=== PATIENT | male | born 1955 | race Caucasian/White ===

== ENCOUNTER 2016-07-10 15:34 | Emergency (ER) | payer OTHER ==
[~2016-07-10] VITALS: Ht 172.7 cm; Wt 87.7 kg
[2016-07-10 15:36] VITALS: Ht 172.7 cm; Wt 87.7 kg
[2016-07-10] MEDS ORDERED: ASPIRIN 81 MG CHEW PO STA (15:43)
[2016-07-10] MEDS ORDERED: ONDANSETRON 4MG OD TAB PO ONE (15:45)
--- NOTE | 2016-07-10 15:47 | EMERGENCY ROOM VISIT NOTE ---
History Report prepared by Aurelio: Bennett Gayle Under the Supervision of: Dr. Blayne Thurston D.O. First contact with patient: 15:40 Chief Complaint: CHEST PAIN Stated Complaint: SWEATY,ANXIOUS,CLAMY,DIZZY,A-FIB PT History of Present Illness The patient is a 61 year old male who presents to the Emergency Room with complaints of possible cardiac event. The patient states that he has a history of atrial fibrillation. He's been noticing over the last few weeks that he's been having exertional symptoms which he thinks could either be related to anxiety or possibly a cardiac event. He has a history of atrial fibrillation. He states he has been compliant with his medications. He is currently in [place] helping his daughter go home for the holiday. He is from the [facility]. He states that he was helping move a very large couch. He became very diaphoretic and became very anxious. He states he does not remember having any specific chest pain but felt as though he may have had some pressure or possibly discomfort across his anterior chest. His states it he was very pale and appeared uncomfortable but he did not appear diaphoretic at the time that she was watching him. The patient states he was diaphoretic at one point and became very anxious. He called his primary care physician and was told to go to the emergency department for an evaluation. At this time the patient denies having any chest pain or shortness of breath although he does state that recently he was cleared to return to exercise and has been noticing exertional symptoms such as dyspnea. The patient denies having any swelling in his legs recently came. He denies having any recent chills fevers or febrile illnesses. The patient denies having any cough. Source of History: patient Onset: the past few weeks Position: chest Symptom Intensity: mild Quality: pressure Timing: intermittent Modifying Factors (Worsening): exertion Associated Symptoms: No SOB, No chest pain, No chills, No cough, No fevers Review of Systems See HPI for pertinent positives & negatives. A total of 10 systems reviewed and were otherwise negative. Past Medical & Surgical Medical Problems: (1) Anxiety (2) Atrial fibrillation (3) High cholesterol (4) History of cardioversion (5) Hypertension Family History Omitted secondary to age. Social History Smoking Status: Never Smoker Smokeless Tobacco Use: No Alcohol Use: none Drug Use: none Marital Status: Current/Historical Medications Scheduled Aspirin (Aspirin Adult Low Strengt), 1 TAB PO QAM Atorvastatin (Lipitor), 20 MG PO DAILY Lisinopril (Prinivil), 5 MG PO QAM Lorazepam (Ativan), 0 PO Q6H Metoprolol Tartrate (Lopressor) (Lopressor), 25 MG PO BID Rivaroxaban (Xarelto), 20 MG PO DAILY Allergies Coded Allergies: No Known Allergies (Unverified , 07/10/16) Physical Exam Vital Signs Date Time Temp Pulse Resp B/P Pulse Ox O2 Delivery O2 Flow Rate FiO2 07/10/16 17:09 36.3 74 12 161/99 100 07/10/16 16:34 74 12 100 07/10/16 16:30 136/92 07/10/16 16:28 127/86 07/10/16 16:24 99 Room Air 07/10/16 16:24 99 Room Air 07/10/16 16:04 82 16 97 07/10/16 15:49 75 07/10/16 15:44 138/96 07/10/16 15:36 36.3 64 20 149/81 99 Room Air Physical Exam GENERAL: Patient is awake alert in no acute distress patient is resting comfortably and showing no signs of anxiety EYES: The conjunctivae are clear. The pupils are round and reactive. EARS, NOSE, MOUTH AND THROAT: The nose is without any evidence of any deformity. Mucous membranes are moist tongue is midline NECK: The neck is nontender and supple. RESPIRATORY: Normal respiratory effort is noted there is no evidence of wheezing rhonchi or rales CARDIOVASCULAR: Regular rate and rhythm noted there no murmurs rubs or gallops normal S1 normal S2 GASTROINTESTINAL: The abdomen is soft. Bowel sounds are present in all quadrants. Abdomen is nontender MUSCULOSKELETAL/EXTREMITIES: There is no evidence of gross deformity full range of motion is noted in the hips and shoulders SKIN: There is no obvious evidence of any rash. There are no petechiae, pallor or cyanosis noted. NEUROLOGIC: Patient is awake alert and oriented x3. Medical Decision & Procedures ER Provider Diagnostic Interpretation: X-ray results as stated below per interpretation by me and the radiologist. CHEST ONE VIEW PORTABLE CLINICAL HISTORY: Chest pain. COMPARISON STUDY: No previous studies for comparison. FINDINGS: There is no pneumothorax or pleural effusion. There is no consolidation. Mild to moderate cardiomegaly is noted. There is no evidence of pulmonary edema. IMPRESSION: 1. No acute cardiopulmonary findings. 2. Mild to moderate cardiomegaly. No evidence of pulmonary edema. Electronically signed by: Calvin Tran M.D. 07/10/2016 4:23 PM Dictated Date/Time: 07/10/2016 4:22 PM Laboratory Results 07/10/16 15:55 Red Blood Count 4.42, Mean Corpuscular Volume 89.1, Mean Corpuscular Hemoglobin 31.4, Mean Corpuscular Hemoglobin Concent 35.3, Mean Platelet Volume 9.7, Neutrophils (%) (Auto) 56.5, Lymphocytes (%) (Auto) 28.8, Monocytes (%) (Auto) 8.1, Eosinophils (%) (Auto) 5.6, Basophils (%) (Auto) 0.8, Neutrophils # (Auto) 2.73, Lymphocytes # (Auto) 1.39, Monocytes # (Auto) 0.39, Eosinophils # (Auto) 0.27, Basophils # (Auto) 0.04 07/10/16 15:55 Test 07/10/16 15:55 White Blood Count 4.83 K/uL (4.8-10.8) Red Blood Count 4.42 M/uL (4.7-6.1) Hemoglobin 13.9 g/dL (14.0-18.0) Hematocrit 39.4 % (42-52) Mean Corpuscular Volume 89.1 fL (80-100) Mean Corpuscular Hemoglobin 31.4 pg (25-34) Mean Corpuscular Hemoglobin Concent 35.3 g/dl (32-36) Platelet Count 199 K/uL (130-400) Mean Platelet Volume 9.7 fL (7.4-10.4) Neutrophils (%) (Auto) 56.5 % Lymphocytes (%) (Auto) 28.8 % Monocytes (%) (Auto) 8.1 % Eosinophils (%) (Auto) 5.6 % Basophils (%) (Auto) 0.8 % Neutrophils # (Auto) 2.73 K/uL (1.4-6.5) Lymphocytes # (Auto) 1.39 K/uL (1.2-3.4) Monocytes # (Auto) 0.39 K/uL (0.11-0.59) Eosinophils # (Auto) 0.27 K/uL (0-0.5) Basophils # (Auto) 0.04 K/uL (0-0.2) RDW Standard Deviation 40.7 fL (36.4-46.3) RDW Coefficient of Variation 12.5 % (11.5-14.5) Immature Granulocyte % (Auto) 0.2 % Immature Granulocyte # (Auto) 0.01 K/uL (0.00-0.02) Prothrombin Time 10.8 SECONDS (9.0-12.0) Prothromb Time International Ratio 1.0 (0.9-1.1) Activated Partial Thromboplast Time 29.1 SECONDS (21.0-31.0) Partial Thromboplastin Ratio 1.1 Anion Gap 6.0 mmol/L (3-11) Est Creatinine Clear Calc Drug Dose 77.8 ml/min Estimated GFR () 84.7 Estimated GFR (Non- 73.1 BUN/Creatinine Ratio 18.1 (10-20) Calcium Level 8.8 mg/dl (8.5-10.1) Total Bilirubin 0.6 mg/dl (0.2-1) Direct Bilirubin 0.2 mg/dl (0-0.2) Aspartate Amino Transf (AST/SGOT) 18 U/L (15-37) Alanine Aminotransferase (ALT/SGPT) 44 U/L (12-78) Alkaline Phosphatase 67 U/L (45-117) Total Creatine Kinase 48 U/L (39-308) Creatine Kinase MB 1.3 ng/ml (0.5-3.6) Creatine Kinase MB Ratio 2.7 (0-3.0) Troponin I < 0.015 ng/ml (0-0.045) Total Protein 7.6 gm/dl (6.4-8.2) Albumin 4.0 gm/dl (3.4-5.0) Lipase 128 U/L (73-393) Laboratory results per my review. Medications Administered Medications (Trade) Dose Ordered Sig/Rossana Route Start Time Stop Time Status Last Admin Dose Admin Ondansetron HCl (Zofran Odt) 4 mg ONE ONCE PO 07/10/16 15:45 07/10/16 15:46 DC 07/10/16 16:23 4 MG Aspirin (Aspirin Chew) 324 mg NOW STAT PO 07/10/16 15:43 07/10/16 15:45 DC 07/10/16 16:23 324 MG Lorazepam (Ativan Tab) 0.5 mg NOW STAT SL 07/10/16 17:04 07/10/16 17:05 DC 07/10/16 17:15 0.5 MG ECG Indication: chest pain Rate (beats per minute): 65 Rhythm: normal sinus Findings: nonspecific-ST abn (Inferior), PVC Comparison ECG Date: no prior available Change: A second EKG was obtained in the emergency department. This reveals normal sinus rhythm at 72 beats per minute. No ectopy was noted. Inferior T wave inversions were noted. Resolution of previously noted PVCs otherwise no change from earlier tracing. ED Course 1540: The patient was evaluated in room B3B. A complete history and physical examination were performed. 1543: Ordered Aspirin 324 mg PO 1545: Ordered Zofran Odt 4 mg PO 1700: I spoke with Dr. Ariza of cardiology at this time. Please see the consultation note. 1704: Ordered Ativan Tab 0.5 SL 1735: Upon reevaluation, the patient is resting. I discussed the results and treatment plan with him. He verbalized agreement of the treatment plan. He was discharged home. Medical Decision Prior records/ancillary studies reviewed. Triage Nursing notes reviewed. The patient's history was concerning for chest pain. Differential diagnosis: Etiologies such as cardiac ischemia, aortic dissection, pulmonary embolism, pneumonia, pneumothorax, musculoskeletal, infections, pericarditis, myocarditis , esophageal rupture, gastrointestinal, as well as others were entertained. The patient is a 61-year-old male who presented to the emergency department for an evaluation of discomfort in his chest and diaphoresis. The patient was concerned he may have had a cardiac event. He was doing exertional activity when the symptoms started. He doesn't a history of paroxysmal atrial fibrillation and takes blood thinners as well as beta blockers. At this time he is in normal sinus rhythm. His cardiac biomarkers were negative. I discussed the patient's laboratory and radiographic studies with him. He was treated with aspirin and Zofran and Ativan in the emergency department. I discussed his case with his primary sign language instructor. She states that the patient has had a cardiac catheterization in the past which did reveal no acute coronary artery disease or stenosis. The patient was encouraged to restart his flecainide. This was at the recommendation of his primary sign language instructor. He was also encouraged to continue all medications as prescribed and can continue to rest and avoid any strenuous activity. He was also encouraged to rest and follow-up with his primary care physician as well. He was also encouraged to return the emergency Department immediately if symptoms change worsen or the need arises. Consults Time Called: 1655 Consulting Physician: Dr. Ariza - Cardiology Returned Call: 1700 We discussed the patient's case. They told me that the patient has received a cardiac catheterization before that was normal. Impression Primary Impression: Substernal chest pain Additional Impression: Palpitations Scribe Attestation The scribe's documentation has been prepared under my direction and personally reviewed by me in its entirety. I confirm that the note above accurately reflects all work, treatment, procedures, and medical decision making performed by me. Departure Information Dispostion Home / Self-Care Referrals No Doctor, Assigned (PCP) Forms HOME CARE DOCUMENTATION FORM, IMPORTANT VISIT INFORMATION Patient Instructions ED Chest Pain Atypical Unkn Cause, My [facility] Additional Instructions Continue all medications as prescribed. Rest and avoid any strenuous activity. Call your primary care physician as well as her primary sign language instructor to schedule a follow-up appointment. Your sign language instructor recommended restarting your T[place]oc[place]. Return to the emergency department immediately if symptoms change worsen or the need arises. Problem Qualifiers
[2016-07-10] MEDS ORDERED: LORA-741 PO (15:58)
[2016-07-10] MEDS ORDERED: RIVA1TAB4 PO (15:58)
[2016-07-10] MEDS ORDERED: METO25TA56 PO (15:58)
[2016-07-10] MEDS ORDERED: ATOR-22 PO (15:58)
[2016-07-10] MEDS ORDERED: ASPI-495 PO (15:58)
[2016-07-10] MEDS ORDERED: LISI-729 PO (15:58)
[2016-07-10 16:12] LABS: BASO % 0.8 %; BASO ABS # 0.04 K/uL (0-0.2); COMPLETE YES; EOS % 5.6 %; HEMATOCRIT 39.4 % (42-52); IG% 0.2 %; LYMPH % 28.8 %; LYMPH ABS # 1.39 K/uL (1.2-3.4); MEAN CELL VOLUME 89.1 fL (80-100); MEAN CORPUSCULAR HEMOGLOBIN 31.4 pg (25-34); MEAN CORPUSCULAR HGB CONC 35.3 g/dl (32-36); MEAN PLATELET VOLUME 9.7 fL (7.4-10.4); MONO % 8.1 %; NEUT % 56.5 %; PLATELET COUNT 199 K/uL (130-400); RED BLOOD COUNT 4.42 M/uL (4.7-6.1); WHITE BLOOD COUNT 4.83 K/uL (4.8-10.8)
[2016-07-10 16:22] LABS: PARTIAL THROMBOPLASTIN RATIO 1.1; PROTHROMBIN TIME (PATIENT) 10.8 SECONDS (9.0-12.0)
[2016-07-10 16:24] VITALS: O2SAT 99
--- NOTE | 2016-07-10 16:25 | DIAGNOSTIC IMAGING REPORT ---
CHEST ONE VIEW PORTABLE CLINICAL HISTORY: Chest pain. COMPARISON STUDY: No previous studies for comparison. FINDINGS: There is no pneumothorax or pleural effusion. There is no consolidation. Mild to moderate cardiomegaly is noted. There is no evidence of pulmonary edema. IMPRESSION: 1. No acute cardiopulmonary findings. 2. Mild to moderate cardiomegaly. No evidence of pulmonary edema. Electronically signed by: Calvin Tran M.D. 07/10/2016 4:23 PM Dictated Date/Time: 07/10/2016 4:22 PM
[2016-07-10 16:28] LABS: ALT/SGPT 44 U/L (12-78); AST/SGOT 18 U/L (15-37); BLOOD UREA NITROGEN 20 mg/dl (7-18); BUN/CREATININE RATIO 18.1 (10-20); CALCIUM 8.8 mg/dl (8.5-10.1); CARBON DIOXIDE 28 mmol/L (21-32); CHLORIDE 107 mmol/L (98-107); GLUCOSE 125 mg/dl (70-99); POTASSIUM 3.9 mmol/L (3.5-5.1); SODIUM 141 mmol/L (136-145)
[2016-07-10 16:34] LABS: ALKALINE PHOSPHATASE 67 U/L (45-117); CKMB/CK RATIO 2.7 (0-3.0)
[2016-07-10] MEDS ORDERED: LORAZEPAM 1 MG TAB SL STA (17:03)
[2016-07-10] MEDS ORDERED: LORAZEPAM 0.5 MG TAB SL STA (17:04)
[2016-07-10 17:09] VITALS: BP 161/99; PULSE 74; TEMP 36.3; O2SAT 100
== END 2016-07-10 17:09 | disposition home or self-care (01) ==
LOC: C.EDB 15:36
DX: R07.2 Precordial pain (principal); R00.2 Palpitations; F41.9 Anxiety disorder, unspecified; I48.91 Unspecified atrial fibrillation; I10 Essential (primary) hypertension; Z79.82 Long term (current) use of aspirin; E78.00 Pure hypercholesterolemia, unspecified